=== PATIENT | male | born 1980 | race African-American/Black ===

== ENCOUNTER 2017-10-23 08:05 | Emergency (ER) | payer MEDICAID ==
[2017-10-23] MEDS: NAPROXEN 500 MG TABLET PO (09:23)
== END 2017-10-23 10:42 | disposition home or self-care (01) ==
LOC: ER 10:42
DX: S16.1XXA Strain of muscle, fascia and tendon at neck level, initial encounter (principal); S39.012A Strain of muscle, fascia and tendon of lower back, initial encounter; Z59.0 Homelessness; D57.3 Sickle-cell trait; F12.10 Cannabis abuse, uncomplicated; Y08.89XA Assault by other specified means, initial encounter; Y93.89 Activity, other specified; Y99.8 Other external cause status; Y92.89 Other specified places as the place of occurrence of the external cause
CPT/HCPCS: 72040; 72100; 99284